=== PATIENT | female | born 1940 ===

== ENCOUNTER 2018-10-11 11:35 | Inpatient (IN) | payer OTHER ==
[~2018-10-11] VITALS: Ht 149.9 cm; Wt 83.9 kg
[2018-10-18] MEDS ORDERED: METOPROLOL SUCC25 MG PO (15:51)
[2018-10-18] MEDS ORDERED: ALDACTONE50 MG PO (15:52)
[2018-10-18] MEDS ORDERED: LOSARTAN-HCTZ1 EACH PO (15:52)
[2018-10-20] MEDS ORDERED: GABAPENTIN800 MG PO (15:07)
[2018-10-20] MEDS ORDERED: BACTRIM DS TAB1 EACH PO (15:07)
[2018-10-20] MEDS ORDERED: PERCOCET 5-3251 EACH PO (15:07)
[2018-10-20] MEDS ORDERED: MEDROLPACK PO (15:07)
[2018-10-20] MEDS ORDERED: CLONAZEPAM0.5 M1 PO ×2 (15:07)
[2018-10-20] MEDS ORDERED: DOCUSATE SODIU100 MG PO (15:07)
== END 2018-10-21 20:42 | DRG 455 ==
LOC: SURH 10-18 14:45 → O/R 10-20 05:15 → SURG 10-20 05:15 → SURH 10-20 14:45 → SURG 10-20 18:05
PROVIDERS: ADMIT Orthopaedic Surgery Orthopaedic Surgery of the Spine
PROC: 0SG0071 Fusion of Lumbar Vertebral Joint with Autologous Tissue Substitute, Posterior Approach, Posterior Column, Open Approach (ICD-10-PCS; 2018-10-20)
PROC: 0ST40ZZ Resection of Lumbosacral Disc, Open Approach (ICD-10-PCS; 2018-10-20)
PROC: 07DS3ZZ Extraction of Vertebral Bone Marrow, Percutaneous Approach (ICD-10-PCS; 2018-10-20)
PROC: 0SG30AJ Fusion of Lumbosacral Joint with Interbody Fusion Device, Posterior Approach, Anterior Column, Open Approach (ICD-10-PCS; principal; 2018-10-20 16:00)
DX: M43.17 Spondylolisthesis, lumbosacral region (principal); M47.27 Other spondylosis with radiculopathy, lumbosacral region; M51.17 Intervertebral disc disorders with radiculopathy, lumbosacral region; I10 Essential (primary) hypertension